=== PATIENT | female | born 1990 | race Caucasian/White ===

== ENCOUNTER 2017-02-10 20:50 | Emergency (ER) | payer MEDICAID ==
--- NOTE | 2017-02-10 21:19 | ER Document Report ---
ED General - General Stated Complaint: UNRESPONSIVE Time Seen by Provider: 02/10/17 20:50 Notes: Patient is a 26 year old female that comes to the ED by EMS for chief complaint of being unresponsive. EMS reports that boyfriend informed them that patient had done heroin this morning and when she became drowsy and stopped responding he thought it was from this, however EMS also obtained an initial blood glucose of 36, they gave IM glucagon along with 2 mg of narcan nasally. Patient awakened and was given oral glucose. Patient states she took her insulin today but she is not sure when she ate last. Past medical history of heroin abuse, hepatitis C, insulin-dependent diabetes, patient denies any oral medications for diabetes. Patient is also at 16 weeks. She has seen her primary care about this but has not seen [facility]. She denies vaginal bleeding, abdominal pain, flank pain. Past Medical History - General Information source: Patient - Social History Smoking Status: Never Smoker Frequency of alcohol use: None Drug Abuse: Heroin Lives with: Family Family History: Reviewed & Not Pertinent Endocrine Medical History: Reports: Hx Diabetes Mellitus Type 1 Surgical Hx: Negative - Immunizations Immunizations up to date: Yes Hx Diphtheria, Pertussis, Tetanus Vaccination: Yes Review of Systems - Review of Systems Constitutional: No symptoms reported EENT: No symptoms reported Cardiovascular: See HPI Respiratory: No symptoms reported Gastrointestinal: No symptoms reported Genitourinary: No symptoms reported Female Genitourinary: No symptoms reported Musculoskeletal: No symptoms reported Skin: No symptoms reported Hematologic/Lymphatic: No symptoms reported Neurological/Psychological: See HPI Physical Exam - Vital signs Vitals: Resp Pulse Ox 26 H 100 02/10/17 20:58 02/10/17 20:58 Interpretation: Normal - General General appearance: Appears well, Alert In distress: None - HEENT Head: Normocephalic, Atraumatic Eyes: Normal Conjunctiva: Normal Extraocular movements intact: Yes Eyelashes: Normal Pupils: PERRL Nasal: Normal Mouth/Lips: Normal Mucous membranes: Normal Pharynx: Normal Neck: Normal - Respiratory Respiratory status: No respiratory distress Chest status: Nontender Breath sounds: Normal. No: Decreased air movement, Wheezing Chest palpation: Normal - Cardiovascular Rhythm: Regular. No: Tachycardia Heart sounds: Normal auscultation, S1 appreciated, S2 appreciated Murmur: No - Abdominal Inspection: Gravid female - slightly Distension: No distension Bowel sounds: Normal Tenderness: Nontender. No: Tender, Guarding Organomegaly: No organomegaly - Back Back: Normal, Nontender - Extremities General upper extremity: Normal inspection, Nontender, Normal color, Normal ROM , Normal temperature General lower extremity: Normal inspection, Nontender, Normal color, Normal ROM , Normal temperature, Normal weight bearing. No: Barney's sign - Neurological Neuro grossly intact: Yes Cognition: Normal. No: Confused Orientation: Disoriented to time, Disoriented to events. 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 Min. Patient was awake on arrival, given oral juice, peanut butter crackers. Patient monitored for several hours. Blood glucose rechecked multiple times, she did not have repeat hypoglycemia. Ultrasound performed at bedside, shows good movement and heart rate at about 130s to 140s. Nontender abdomen/pelvis, no vaginal bleeding. BMP performed, unremarkable. Patient requesting to call ride to go home. Discussed drug abuse including heroin use today. Patient states that she is relieved that she is okay, she states that she understands that she can hurt both herself and her child with high risk of for both of them, she states that she understands this is more dangerous as well because she has an insulin- dependent diabetic. Patient states that she does not do this routinely, she states she made a mistake today and will not longer be using this during her . She denies getting withdrawal symptoms. Patient denies SI or HI. Family now to bedside, discussed presentation, monitoring, recommendations. Referred to [facility], provided vitamins, discussed return precautions, patient and family state understanding and agreement. - Vital Signs Vital signs: Temp Pulse Resp BP Pulse Ox 13 104/70 98 02/11/17 01:14 02/11/17 01:11 02/11/17 01:14 - Laboratory Result Diagrams: 02/10/17 22:49 Laboratory results interpreted by me: 02/10/17 02/10/17 22:49 22:49 Sodium 131.1 L Creatinine 0.39 L Glucose 230 H Serum HCG, Qual POSITIVE H Discharge - Discharge Clinical Impression: Hypoglycemia, Substance abuse Qualifiers: Weeks of gestation: 16 weeks Qualified Code(s): Z3A.16 - 16 weeks gestation of Condition: Stable Disposition: HOME, SELF-CARE Additional Instructions: Eat more regularly when using insulin, check blood sugar frequently. Do not use any recreational substances. Take the pre-antonietta vitamins, follow up with either the health department or OBGYN within the next week. Return to the ED for any concerning symptoms. Prescriptions: Vit W-Ca,Fe,FA(<1 mg) [ Vitamins] 1 each PO DAILY #60 tablet Referrals: [facility] [Provider Group] - Follow up in 3-5 days
[2017-02-10 23:23] LABS: ANION GAP 10 (5-19); BLOOD UREA NITROGEN 8 mg/dL (7-20); CALCIUM 8.6 mg/dL (8.4-10.2); CARBON DIOXIDE 22 mmol/L (22-30); CHLORIDE 99 mmol/L (98-107); CREATININE RESULT 0.39 mg/dL (0.52-1.25); GLUCOSE 230 mg/dL (75-110); SODIUM 131.1 mmol/L (137-145)
[2017-02-11 01:27] VITALS: BP 104/70
== END 2017-02-11 01:38 | disposition home or self-care (01) ==
LOC: ER 20:50
DX: E16.2 Hypoglycemia, unspecified (principal); F11.10 Opioid abuse, uncomplicated; Z3A.16 16 weeks gestation of pregnancy
CPT/HCPCS: 36415; 80048; 82962; 84703; 99284